=== PATIENT | female | born 1990 | race American Indian/Alaskan Native ===

== ENCOUNTER 2020-08-17 10:42 | Emergency (ER) | payer OTHER ==
[2020-08-17 10:52] VITALS: BP 135/75
--- NOTE | 2020-08-17 11:05 | Event Note ---
ED Screening Note ED Screening Note: 8 weeks steve confirmed her first appt with [facility] on 08/21/2020 states having vaginal spotting put on a light pad mild lower abd cramping no fever, v/d no dysuria pmhx none no allergies to meds LNMP: 06/18/2020 /P:0/A:1 This initial assessment/diagnostic orders/clinical plan/treatment(s) is/are subject to change based on patients health status, clinical progression and re- assessment by fellow clinical providers in the ED. Further treatment and workup at subsequent clinical providers discretion. Patient/guardian urged not to elope from the ED as their condition may be serious if not clinically assessed and managed. Initial orders include: labs, ua, US
[2020-08-17 11:33] LABS: Bacteria,Urine 1+ /HPF (Negative); Bilirubin,Urine NEG (Negative); Blood,Urine LG (Negative); Color,Urine Yellow (Yellow); Mucus,Urine FEW /HPF; Protein,Urine <15 mg/dL mg/dL (Negative); Urobilinogen,Urine < 2.0 mg/dL (<2.0)
[2020-08-17 11:44] LABS: Basophils # (Auto) 0.1 K/mm3 (0.0-0.1); Eosinophils # (Auto) 0.1 K/mm3 (0.0-0.4); Eosinophils % (Auto) 0.8 % (0.0-4.3); Hematocrit 37.8 % (30.3-42.9); Hemoglobin 13.2 gm/dl (10.1-14.3); Lymphocytes # (Auto) 2.4 K/mm3 (1.2-5.4); Lymphocytes % (Auto) 30.9 % (13.4-35.0); Mean Corpuscular HGB Conc 35 % (30-34); Mean Corpuscular Volume 91 fl (79-97); Monocytes # (Auto) 0.5 K/mm3 (0.0-0.8); Platelet Count 259 K/mm3 (140-440); Red Blood Count 4.18 M/mm3 (3.65-5.03); Red Cell Distribution Width 13.6 % (13.2-15.2)
[2020-08-17 11:54] LABS: WBC,Urine < 1.0 /HPF (0.0-6.0)
[2020-08-17 12:01] LABS: Blood Urea Nitrogen 6 mg/dL (7-17); Calcium 9.9 mg/dL (8.4-10.2); Hemolysis Index 0
[2020-08-17 12:03] LABS: BUN/Creatinine Ratio 12
--- NOTE | 2020-08-17 12:45 | Ultrasound Report ---
ULTRASOUND OBSTETRIC REASON FOR EXAM: , cramping, spotting TECHNIQUE: Transabdominal and transvaginal ultrasound was performed to evaluate a first trimester pre gnancy. COMPARISON: None available. FINDINGS: FINDINGS: The pole, yolk sac, and gestational sac are normal in appearance. [place]-rump length: 23 mm. This corresponds with a gestational age of 9 weeks 0 days. heart rate: 181 bpm Perigestational hemorrhage: No evidence of perigestational hemorrhage on the provided images. MATERNAL FINDINGS: The uterus measures 10.4 x 6.8 x 8.1 cm. The right ovary measures 3.4 x 2.4 x 1.8 cm and demonstrates a normal sonographic appearance. The left ovary is not visualized. Cul-de-sac: There is no free fluid. IMPRESSION: Single live intrauterine . Gestational age is 9 weeks 0 days by ultrasound, consistent with the patient's LMP. Recommend clinical screening and ultrasound follow-up in the second trimester to jaimee nguyen for anomalies. Signer Name: Yoshi Blum MD Signed: 08/17/2020 12:41 PM Workstation Name: [id number]
--- NOTE | 2020-08-17 13:24 | Emergency Department Report ---
ED HPI - General Chief complaint: Vaginal Bleeding Stated complaint: POSSIBLE MISCARRIAGE Time Seen by Provider: 08/17/20 11:03 Source: patient Mode of arrival: Wheelchair Limitations: No Limitations - History of Present Illness Initial comments: This is a 29-year-old female nontoxic, well nourished in appearance, no acute signs of distress presents to the ED with c/o of vaginal bleeding x1 day. Patient stated yesterday she noticed some spotting and goes by less then 1 hour every 3-4 hours. Patient denies any abdominal or pelvic pain. Patient denies any vaginal discharge or foul odor. Patient denies any nausea, vomiting, chest pain, shortness of breathe, fever, chills, headache, stiff neck, numbness, tingling. Patient denies any urinary symptoms. Patient denies any allergies or PMH. MD Complaint: vaginal bleeding -: days(s) Radiation: none Severity scale (0 -10): 0 Improves with: none Worsens with: none Associated symptoms: vaginal bleeding. denies: nausea/vomiting, vaginal discharge, abdominal pain, dysuria, headache, vision changes, malaise, dys paruenia, rash, seizure, shortness of breath, syncope, weakness Vaginal bleeding: light :: No Pre- care: followed by OB - Related Data Home Medications Medication Instructions Recorded Confirmed Last Taken No Known Home Medications [No 02/25/15 02/25/15 Unknown Reported Home Medications] Allergies Allergy/AdvReac Type Severity Reaction Status Date / Time No Known Allergies Allergy Unverified 02/25/15 20:24 ED Review of Systems ROS: Stated complaint: POSSIBLE MISCARRIAGE Other details as noted in HPI Constitutional: denies: chills, fever Eyes: denies: eye pain, eye discharge, vision change ENT: denies: ear pain, throat pain Respiratory: denies: cough, shortness of breath, wheezing Cardiovascular: denies: chest pain, palpitations Endocrine: no symptoms reported Gastrointestinal: denies: abdominal pain, nausea, diarrhea Genitourinary: abnormal menses. denies: urgency, dysuria, discharge Musculoskeletal: denies: back pain, joint swelling, arthralgia Skin: denies: rash, lesions Neurological: denies: headache, weakness, paresthesias Psychiatric: denies: anxiety, depression Hematological/Lymphatic: denies: easy bleeding, easy bruising ED Past Medical Hx - Past Medical History Previous Medical History?: No - Surgical History Past Surgical History?: No - Social History Smoking Status: Current Every Day Smoker Substance Use Type: None - Medications Home Medications: Home Medications Medication Instructions Recorded Confirmed Last Taken Type No Known Home Medications [No 02/25/15 02/25/15 Unknown History Reported Home Medications] ED Physical Exam - General Limitations: No Limitations General appearance: alert, in no apparent distress - Head Head exam: Present: atraumatic, normocephalic - Eye Eye exam: Present: normal appearance - Neck Neck exam: Present: normal inspection, full ROM - Respiratory Respiratory exam: Absent: respiratory distress - Cardiovascular Cardiovascular Exam: Present: regular rate - GI/Abdominal GI/Abdominal exam: Present: soft, normal bowel sounds. Absent: distended, tenderness, guarding, rebound, rigid, diminished bowel sounds - Extremities Exam Extremities exam: Present: full ROM - Back Exam Back exam: Present: normal inspection, full ROM. Absent: tenderness, CVA tenderness (R), CVA tenderness (L), muscle spasm, paraspinal tenderness, vertebral tenderness, rash noted - Neurological Exam Neurological exam: Present: alert, oriented X3, normal gait - Psychiatric Psychiatric exam: Present: normal affect, normal mood - Skin Skin exam: Present: warm, dry, intact, normal color. Absent: rash ED Course Vital Signs 08/17/20 10:52 Pulse Rate 99 H Respiratory 16 Rate Blood Pressure 135/75 [Right] O2 Sat by Pulse 99 Oximetry - Reevaluation(s) Reevaluation #1: 08/17/20 13:28 Patient is speaking in full sentences with no signs of distress noted. ED Medical Decision Making - Lab Data Result diagrams: 08/17/20 11:15 08/17/20 11:15 Lab Results 08/17/20 08/17/20 08/17/20 Range/Units 11:15 11:15 11:15 WBC 7.7 (4.5-11.0) K/mm3 RBC 4.18 (3.65-5.03) M/mm3 Hgb 13.2 (10.1-14.3) gm/dl Hct 37.8 (30.3-42.9) % MCV 91 (79-97) fl MCH 32 (28-32) pg MCHC 35 H (30-34) % RDW 13.6 (13.2-15.2) % Plt Count 259 (140-440) K/mm3 Lymph % (Auto) 30.9 (13.4-35.0) % [place] % (Auto) 7.0 (0.0-7.3) % Eos % (Auto) 0.8 (0.0-4.3) % Baso % (Auto) 1.0 (0.0-1.8) % Lymph # (Auto) 2.4 (1.2-5.4) K/mm3 [place] # (Auto) 0.5 (0.0-0.8) K/mm3 Eos # (Auto) 0.1 (0.0-0.4) K/mm3 Baso # (Auto) 0.1 (0.0-0.1) K/mm3 Seg Neutrophils % 60.3 (40.0-70.0) % Seg Neutrophils # 4.7 (1.8-7.7) K/mm3 Sodium 138 (137-145) mmol/L Potassium 3.8 (3.6-5.0) mmol/L Chloride 104.3 (98-107) mmol/L Carbon Dioxide 23 (22-30) mmol/L Anion Gap 15 mmol/L BUN 6 L (7-17) mg/dL Creatinine 0.5 L (0.6-1.2) mg/dL Estimated GFR > 60 ml/min BUN/Creatinine Ratio 12 % Glucose 104 H (65-100) mg/dL Calcium 9.9 (8.4-10.2) mg/dL HCG, Quant 055064 H (0-4) mIU/mL Urine Color (Yellow) Urine Turbidity (Clear) Urine pH (5.0-7.0) Ur Specific [place] (1.003-1.030) Urine Protein (Negative) mg/dL Urine Glucose (UA) (Negative) mg/dL Urine Ketones (Negative) mg/dL Urine Blood (Negative) Urine Nitrite (Negative) Urine Bilirubin (Negative) Urine Urobilinogen (<2.0) mg/dL Ur Leukocyte Esterase (Negative) Urine WBC (Auto) (0.0-6.0) /HPF Urine RBC (Auto) (0.0-6.0) /HPF U Epithel Cells (Auto) (0-13.0) /HPF Urine Bacteria (Auto) (Negative) /HPF Urine Mucus /HPF Blood Type 08/17/20 08/17/20 Range/Units 11:15 11:24 WBC (4.5-11.0) K/mm3 RBC (3.65-5.03) M/mm3 Hgb (10.1-14.3) gm/dl Hct (30.3-42.9) % MCV (79-97) fl MCH (28-32) pg MCHC (30-34) % RDW (13.2-15.2) % Plt Count (140-440) K/mm3 Lymph % (Auto) (13.4-35.0) % [place] % (Auto) (0.0-7.3) % Eos % (Auto) (0.0-4.3) % Baso % (Auto) (0.0-1.8) % Lymph # (Auto) (1.2-5.4) K/mm3 [place] # (Auto) (0.0-0.8) K/mm3 Eos # (Auto) (0.0-0.4) K/mm3 Baso # (Auto) (0.0-0.1) K/mm3 Seg Neutrophils % (40.0-70.0) % Seg Neutrophils # (1.8-7.7) K/mm3 Sodium (137-145) mmol/L Potassium (3.6-5.0) mmol/L Chloride (98-107) mmol/L Carbon Dioxide (22-30) mmol/L Anion Gap mmol/L BUN (7-17) mg/dL Creatinine (0.6-1.2) mg/dL Estimated GFR ml/min BUN/Creatinine Ratio % Glucose (65-100) mg/dL Calcium (8.4-10.2) mg/dL HCG, Quant (0-4) mIU/mL Urine Color Yellow (Yellow) Urine Turbidity Clear (Clear) Urine pH 7.0 (5.0-7.0) Ur Specific [place] 1.017 (1.003-1.030) Urine Protein <15 mg/dl (Negative) mg/dL Urine Glucose (UA) Neg (Negative) mg/dL Urine Ketones 20 (Negative) mg/dL Urine Blood Lg (Negative) Urine Nitrite Neg (Negative) Urine Bilirubin Neg (Negative) Urine Urobilinogen < 2.0 (<2.0) mg/dL Ur Leukocyte Esterase Neg (Negative) Urine WBC (Auto) < 1.0 (0.0-6.0) /HPF Urine RBC (Auto) 7.0 (0.0-6.0) /HPF U Epithel Cells (Auto) 4.0 (0-13.0) /HPF Urine Bacteria (Auto) 1+ (Negative) /HPF Urine Mucus Few /HPF Blood Type O POSITIVE - Radiology Data Referring Physician: TRACY PAL Patient Name: YOSEPH ARDON Date of : 1990 Sex: Female Report Date: 2020-08-17 Report Status: Finalized [facility] [address] [place] [address] Ultrasound Report Signed Patient: YOSEPH ARDON MR#: [id number] : 1990 Acct:[id number] Age/Sex: 29 / F ADM Date: 08/17/20 Loc: ED Attending Dr: Ordering Physician: GOLD SHIPLEY Date of Service: 08/17/20 Procedure(s): US OB <= 14 weeks fetus Accession Number(s): [id number] cc: GOLD SHIPLEY ULTRASOUND OBSTETRIC REASON FOR EXAM: , cramping, spotting TECHNIQUE: Transabdominal and transvaginal ultrasound was performed to evaluate a first trimester . COMPARISON: None available. FINDINGS: FINDINGS: The pole, yolk sac, and gestational sac are normal in appearance . [place]-rump length: 23 mm. This corresponds with a gestational age of 9 weeks 0 days. heart rate: 181 bpm Perigestational hemorrhage: No evidence of perigestational hemorrhage on the provided images. MATERNAL FINDINGS: The uterus measures 10.4 x 6.8 x 8.1 cm. The right ovary measures 3.4 x 2.4 x 1.8 cm and demonstrates a normal sonographic appearance. The left ovary is not visualized. Cul-de-sac: There is no free fluid. IMPRESSION: Single live intrauterine . Gestational age is 9 weeks 0 days by ultrasound, consistent with the patient's LMP. Recommend clinical screening and ultrasound follow-up [facility] to screen for anomalies. Signer Name: Malena Blum MD Signed: 08/17/2020 12:41 PM Workstation Name: [id number] Transcribed By: KIT Dictated By: MALENA PRICE MD Electronically Authenticated By: MALENA PRICE MD Signed Date/Time: 08/17/20 1241 DD/ 1239 TD/TT: - Medical Decision Making This is a 29-year-old female presents with threatened miscarriage. Patient is stable and was examined by me. Normal abdominal exam. US OB obtained and dictated by the radiologist. Ua obtained. Quantative serum test obtained. Patient notified of the US report with no questions noted by the patient. P atient was instructed f/u with [facility] in 3-5 days. RH factor positive. Labs within normal limits. Patient was given strict precautions and education on ectopic . At time of discharge, the patient does not seem toxic or ill in appearance. No acute signs of distress noted. Patient agrees to discharge treatment plan of care. No further questions noted by the patient. Critical care attestation.: If time is entered above; I have spent that time in minutes in the direct care of this critically ill patient, excluding procedure time. ED Disposition Clinical Impression: Threatened miscarriage Disposition: DC-01 TO HOME OR SELFCARE Is pt being admited?: No Does the pt Need Aspirin: No Condition: Stable Instructions: Threatened Miscarriage Additional Instructions: Follow-up with a [facility] doctor in 3-5 days or if symptoms worsen and continue return to emergency room as soon as possible. Referrals: [facility] [Primary Care Provider] - 3-5 Days [facility] [Provider Group] - 3-5 Days [facility] [Provider Group] - 3-5 Days
== END 2020-08-17 13:36 | disposition home or self-care (01) ==
LOC: ED 10:42
DX: O20.0 Threatened abortion (principal); F17.200 Nicotine dependence, unspecified, uncomplicated; Z3A.09 9 weeks gestation of pregnancy
CPT/HCPCS: 36415; 76801; 80048; 81001; 84702; 85025; 86900; 86901

== ENCOUNTER 2020-09-14 13:12 | Emergency (ER) | payer OTHER ==
[2020-09-14 13:23] VITALS: BP 137/80
--- NOTE | 2020-09-14 13:38 | Event Note ---
ED Screening Note Date of service: 09/14/20 Time: 13:37 ED Screening Note: 30-year-old -Citizen Of The [place] female presents to the emergency room stating she is 12 weeks and started having some vaginal spotting on the tissue when she wipes. Patient denies any trauma. She states that she has been recently treated for bacterial vaginosis left clindamycin suppository and fluconazole.Patient reports light cramping. She is 2 para 0 last ultrasound 09/08/2020. [facility]. This initial assessment/diagnostic orders/clinical plan/treatment(s) is/are subject to change based on patients health status, clinical progression and re- assessment by fellow clinical providers in the ED. Further treatment and workup at subsequent clinical providers discretion. Patient/guardian urged not to elope from the ED as their condition may be serious if not clinically assessed and managed. Initial orders include:
[2020-09-14 14:31] LABS: Basophils % (Auto) 0.4 % (0.0-1.8); Eosinophils % (Auto) 0.3 % (0.0-4.3); Hematocrit 39.1 % (30.3-42.9); Hemoglobin 13.4 gm/dl (10.1-14.3); Lymphocytes # (Auto) 2.2 K/mm3 (1.2-5.4); Lymphocytes % (Auto) 26.3 % (13.4-35.0); Mean Corpuscular HGB Conc 34 % (30-34); Mean Corpuscular Volume 93 fl (79-97); Monocytes # (Auto) 0.8 K/mm3 (0.0-0.8); Monocytes % (Auto) 9.9 % (0.0-7.3); Red Blood Count 4.22 M/mm3 (3.65-5.03); Red Cell Distribution Width 13.6 % (13.2-15.2)
[2020-09-14 14:42] LABS: Platelet Count 237 K/mm3 (140-440)
[2020-09-14 14:46] LABS: Mucus,Urine FEW /HPF
[2020-09-14 14:49] LABS: Bilirubin,Urine NEG (Negative); Blood,Urine LG (Negative); Color,Urine Yellow (Yellow); Urobilinogen,Urine < 2.0 mg/dL (<2.0)
== END 2020-09-15 01:34 ==
LOC: ED 13:12
DX: O20.8 Other hemorrhage in early pregnancy (principal); Z53.21 Procedure and treatment not carried out due to patient leaving prior to being seen by health care provider; Z3A.12 12 weeks gestation of pregnancy
CPT/HCPCS: 36415; 81001; 84702; 85025

== ENCOUNTER 2020-11-17 15:09 | Inpatient (IN) | payer OTHER ==
[2020-11-17 16:00] LABS: Bacteria,Urine 1+ /HPF (Negative); Bilirubin,Urine NEG (Negative); Blood,Urine NEG (Negative); Color,Urine Yellow (Yellow); Mucus,Urine FEW /HPF; Protein,Urine <15 mg/dL mg/dL (Negative); Urobilinogen,Urine < 2.0 mg/dL (<2.0)
[2020-11-17] MEDS: LACTATED RINGERS 1,000 ML IV SCH ×2 (16:10→21:52)
[2020-11-17] MEDS ORDERED: ACETAMINOPHEN 500 MG TAB PO PRN (19:09)
--- NOTE | 2020-11-17 19:32 | Ultrasound Report ---
ULTRASOUND OBSTETRIC COMPLETE INDICATION / CLINICAL INFORMATION: 21 wk ROM. Clinical Gestational Age (GA) in weeks, days: 21 weeks 5 days TECHNIQUE: Transabdominal. COMPARISON: 08/17/2020 FINDINGS: NUMBER: Single PRESENTATION: cephalic PLACENTA: Fundal and free of the os. No evidence of obstruction. MATERNAL ADNEXA: No significant abnormality. CERVIX: Cervix measures 3.5 cm and appears closed. Suggestion of fluid in the region of the cervix, n ot further characterized. AMNIOTIC FLUID VOLUME: normal AMNIOTIC FLUID INDEX (ALAINA) in cm (if measured): 9.5 cm ANATOMY: Examination is not tailored to evaluate detailed anatomy. No gross anatomic abnormality is iden tified. MEASUREMENTS: - Biparietal Diameter = 5.5 cm = 22 weeks 5 days - Head Circumference = 19.3 cm = 21 weeks 4 days - Abdominal Circumference = 17 cm = 22 weeks 0 days - Femur Length = 3.9 cm = 22 weeks 3 days - Estimated Weight (in grams, if calculated): 479 g - Heart Rate (beats per minute): 174 ADDITIONAL FINDINGS: None. AVERAGE ULTRASOUND AGE (AUA) in weeks, days = 22 weeks 1 day IMPRESSION: 1. Single intrauterine with AUA of 22 weeks 1 day. 2. The cervix measures 3.5 cm and appears closed. There is suggestion of fluid in the region of the c ervix, though this is not further characterized. Continued follow-up is recommended. 3. Otherwise, no significant sonographic abnormality. ALAINA measures 9.5 cm, within normal limits. Signer Name: Yoshi Blum MD Signed: 11/17/2020 7:28 PM Workstation Name: [id number]
[2020-11-17] MEDS ORDERED: TERBUTALINE 1 MG/1 ML INJ SUB-Q PRN (21:00)
[2020-11-17] MEDS ORDERED: TERBUTALINE 1 MG/1 ML INJ ONE (21:02)
[2020-11-17] MEDS ORDERED: DOCUSATE SODIUM 100 MG CAP PO PRN (21:59)
[2020-11-17] MEDS ORDERED: ZOLPIDEM 5 MG TAB PO PRN (22:02)
[2020-11-17] MEDS ORDERED: GENTAMICIN/NS 80 MG/100 ML 100 ML IV ONE (23:43)
[2020-11-17] MEDS ORDERED: AMPICILLIN/NS 2 GM/100 ML 2 GM/100 ML BAG IV SCH (23:55)
[2020-11-18] MEDS: ceFAZolin/NS 1 GM/50 ML 1 GM/50 ML BAG IV SCH ×2 (02:07→11:10)
[2020-11-18] MEDS: BUTORPHANOL 2 MG/1 ML INJ IV PRN ×3 (02:30→08:44)
[2020-11-18] MEDS ORDERED: ACETAMINOPHEN 500 MG TAB PO NR (07:29)
[2020-11-18] MEDS: LACTATED RINGERS 1,000 ML IV SCH (08:33)
--- NOTE | 2020-11-18 08:36 | History and Physical Report ---
History of Present Illness Date of examination: 11/18/20 Date of admission: 11/17/20 15:20 Chief complaint: cramps, then my water broke History of present illness: Pt is a 30 year old REAL 03/25/21 at 21w6d who presented to triage yesterday secondary to pelvic cramping. She was evaluated in triage and noted to have cystitis and given a dose of Ancef. While in triage, she was noted to be harish and was given IV hydration. During her evaluation, the patient notes a gush of fluid and intermittent leakage since then. She also reports vaginal spotting since yesterday morning. She has had care at [facility] for one visit on 11/13/20 since transfer into care complicated by obesity, pyelectasis s/p MFM referral from prior practice, and NIPT yielding insufficient DNA x 2. Her GBS status is unknown. Since admission the pat ient has been febrile to 102 requiring Tylenol. She denies headache, blurred vision, dyspnea, cough, emesis, constipation, lower extremity edema. During her interview this morning, she is noted to have painful contractions. Past History Past Medical History: no pertinent history Past Surgical History: no surgical history Social history: no significant social history - Obstetrical History Expected Date of Delivery: 03/25/21 Actual Gestation: 21 Week(s) 6 Day(s) : 2 Para: 0 Hx # Term Pregnancies: 0 Number of Pregnancies: 0 Spontaneous Abortions: 0 Induced : 1 Number of Living Children: 0 Medications and Allergies Allergies Allergy/AdvReac Type Severity Reaction Status Date / Time No Known Allergies Allergy Verified 11/17/20 15:21 Home Medications Medication Instructions Recorded Confirmed Last Taken Type No Known Home Medications [No 02/25/15 02/25/15 Unknown History Reported Home Medications] Active Meds: Active Medications Acetaminophen (Acetaminophen 500 Mg Tab) 1,000 mg PO ONCE NR Stop: 11/18/20 13:00 Last Admin: 11/18/20 07:53 Dose: 1,000 mg Documented by: Acetaminophen (Acetaminophen 325 Mg Tab) 650 mg PO Q6H PRN PRN Reason: Fever >101 Butorphanol Tartrate (Butorphanol 2 Mg/1 Ml Inj) 2 mg IV Q2H PRN PRN Reason: Labor Pain Last Admin: 11/18/20 06:26 Dose: 2 mg Documented by: Docusate Sodium (Docusate Sodium 100 Mg Cap) 100 mg PO Q12H PRN PRN Reason: Constipation Lactated Ringer's (Lactated Ringers) 1,000 mls @ 125 mls/hr IV DIRECT OSIEL Last Admin: 11/17/20 21:52 Dose: 125 mls/hr Documented by: Cefazolin Sodium (Ancef/Ns 1 Gm/50 Ml) 1 gm in 50 mls @ 100 mls/hr IV Q8H OSIEL; Protocol Last Infusion: 11/18/20 02:37 Dose: Infused Documented by: Multivitamins/Iron/Calcium ( Str01-Jg Fumarate-Folic Acid Vit Tab) 1 each PO QDAY OSIEL Terbutaline Sulfate (Terbutaline 1 Mg/1 Ml Inj) 0.25 mg SUB-Q Q20MIN PRN PRN Reason: CONTRACTIONS Last Admin: 11/17/20 22:43 Dose: 0.25 mg Documented by: Zolpidem Tartrate (Zolpidem 5 Mg Tab) 5 mg PO QHS PRN PRN Reason: Sleep Review of Systems All systems: negative Constitutional: fever Cardiovascular: no chest pain, no edema, no shortness of breath Respiratory: no cough Gastrointestinal: no vomiting - Vital Signs Vital signs: Vital Signs Temp Pulse Resp BP Pulse Ox 98.9 F 118 H 20 127/80 99 11/17/20 15:15 11/17/20 15:15 11/17/20 15:15 11/17/20 15:15 11/17/20 15:15 Temp Pulse Resp BP Pulse Ox 102.7 F H 131 H 20 124/59 94 11/18/20 07:25 11/18/20 08:29 11/18/20 07:53 11/18/20 07:13 11/18/20 08:29 - Physical Exam Breasts: Positive: deferred Cardiovascular: Regular rate Abdomen: Positive: soft (gravid ). Negative: tenderness Uterus: Positive: enlarged (gravid ) Extremities: Positive: normal. Negative: tenderness - Obstetrical Uterine Contraction Monitor Mode: External Cervical Dilatation: 0.5 (speculum exam with pink amniotic fluid and mucus, os 0.5 cm, 50% effaced) Uterine Contraction Pattern: Irregular Uterine Tone Measurement Phase: Resting Uterine Contraction Intensity: Mild Results Abnormal lab results 11/17/20 Range/Units Unknown Urine WBC (Auto) 32.0 H (0.0-6.0) /HPF U Epithel Cells (Auto) 16.0 H (0-13.0) /HPF All other labs normal. Ultrasound: report reviewed Assessment and Plan A: IUP at 21w6d PPROM on 11/17/20 at 1739 pm placed on Ancef and Gentamicin Febrile Morbidity Obesity Pyelectasis GBS unknown P: Admit to antepartum service Continue IV antibiotics Blood cultures x 2 Coronovirus test ordered MFM consult NICU consult Closely monitor clinical status
[2020-11-18 09:17] LABS: Basophils % (Auto) 0.2 % (0.0-1.8); Hematocrit 35.1 % (30.3-42.9); Lymphocytes # (Auto) 1.3 K/mm3 (1.2-5.4); Lymphocytes % (Auto) 6.7 % (13.4-35.0); Mean Corpuscular HGB Conc 34 % (30-34); Mean Corpuscular Volume 92 fl (79-97); Monocytes % (Auto) 10.8 % (0.0-7.3); Platelet Count 202 K/mm3 (140-440); Red Blood Count 3.82 M/mm3 (3.65-5.03); Red Cell Distribution Width 14.5 % (13.2-15.2)
[2020-11-18] MEDS ORDERED: OXYTOCIN DRIP 30,000 MILLIUNITS/500 ML BAG IV ONE ×2 (09:25→11:00)
[2020-11-18 09:33] LABS: Alanine Aminotransferase 17 units/L (7-56); Albumin 3.1 g/dL (3.9-5); Blood Urea Nitrogen 3 mg/dL (7-17); Calcium 8.9 mg/dL (8.4-10.2); Hemolysis Index 2
[2020-11-18 09:35] LABS: BUN/Creatinine Ratio 6
[2020-11-18] MEDS ORDERED: METHYLERGONOVINE MALEATE 0.2 MG/ML VIAL IM ONE (09:43)
[2020-11-18] MEDS ORDERED: PRENATAL VIT27-FE FUMARATE-FOLIC ACID VIT TAB PO SCH (10:00)
--- NOTE | 2020-11-18 10:00 | Procedure Note ---
OB Delivery Note - Delivery Date of Delivery: 11/18/20 Surgeon: HOLLY MARSH Estimated blood loss: 300cc - Vaginal Delivery presentation: vertex Delivery position: OA Intrapartum events: febrile- temp >100.3, PROM->1hr before delivery, uterine atony (s/p Methergine 0.2 mg IM ) Delivery induction: none Delivery monitor: external uterine Route of delivery: Delivery placenta: spontaneous Delivery laceration: none Anesthesia: none - A at 1 minute: 1 (518g @ 0929 am) at 5 minutes: 1 Gender: Male
--- NOTE | 2020-11-18 12:45 | Event Note ---
Date: 11/18/20 Pt asking to go home. She is informed that she cannot go home as she recently had a fever. She has agreed to stay for observation at least overnight until 7 am tomorrow. Pt advised that if she leaves now it would be against medical advice. Continue to monitor closely.
[2020-11-18] MEDS ORDERED: diphenhydrAMINE 25 MG CAP PO PRN (13:49)
[2020-11-18] MEDS ORDERED: HYDROcodone/ACETAMINOPHEN 5-325 MG TAB PO PRN (13:49)
[2020-11-18] MEDS ORDERED: WITCH HAZEL/ GLYCERIN PAD TP PRN (13:49)
[2020-11-18] MEDS ORDERED: BENZOCAINE/MENTHOL 20/0.5% TOP SPRAY 56 GM TP PRN (13:49)
[2020-11-18] MEDS ORDERED: ONDANSETRON 4 MG/2 ML INJ IV PRN (13:49)
[2020-11-18] MEDS ORDERED: MAGNESIUM HYDROXIDE (MOM) ORAL LIQD UDC PO PRN (13:49)
[2020-11-18] MEDS ORDERED: LANOLIN/ZINC/DIMETHICONE (LANSINOH) 7 GM TP PRN ×2 (13:49)
[2020-11-18] MEDS ORDERED: PROMETHAZINE 25 MG TAB PO PRN (13:49)
[2020-11-18] MEDS ORDERED: PROMETHAZINE 25 MG RECT SUPP PR PRN (13:49)
[2020-11-18] MEDS ORDERED: ACETAMINOPHEN 325 MG TAB PO PRN (14:00)
[2020-11-18] MEDS: IBUPROFEN 600 MG TAB PO SCH ×2 (16:04→19:49)
--- NOTE | 2020-11-18 21:41 | Discharge Summary ---
Providers - Providers Date of Admission: 11/17/20 21:51 Date of discharge: 11/19/20 Attending physician: ELLYN MARSH Primary care physician: ELLYN MARSH Hospitalization Reason for admission: labor Delivery: Procedure details: Please see delivery note Episiotomy: none Laceration: none Other procedures: none complications: none Discharge diagnosis: delivery [place] baby: male Hospital course: Pt was admitted secondary to labor, PPROM and fever at 21 wks. The patient delivered a non viable male via spontaneous vaginal delivery and was started on IV antibiotics. Pt adamantly desired discharge immediately after the delivery, but she agreed to remain under observation until 7 am on PPD#1 and could be discharged if she remained afebrile. Blood cultures and urine culture are pending. She will follow up in 1 week in the office. Condition at discharge: Stable Disposition: DC-01 TO HOME OR SELFCARE - Discharge Diagnoses (1) labor in second trimester with delivery Status: Acute (2) premature rupture of membranes (PPROM) delivered, current hospitalization Status: Acute (3) Fever Status: Acute Qualifiers: Fever type: fever during labor (maternal) Qualified Code(s): O75.2 - Pyrexia during labor, not elsewhere classified Plan - Discharge Medications Prescriptions: Amoxicillin/Potassium Clav [Augmentin 875-125 Tablet] 1 each PO BID #14 tablet Ibuprofen [Motrin] 800 mg PO Q8HR PRN #30 tablet PRN Reason: Pain, Moderate (4-6) HYDROcodone/APAP 5-325 [[place] 5/325] 1 each PO Q4HR PRN #15 tablet PRN Reason: Pain - Provider Discharge Summary Activity: no sex for 6 weeks, no heavy lifting 4 weeks, no strenuous exercise Diet: routine Instructions: routine Additional instructions: [] Smoking cessation referral if applicable(refer to patient education folder for contact #) [] Refer to [facility] Booklet Call your doctor immediately for: * Fever > 100.5 * Heavy vaginal bleeding ( >1 pad per hour) * Severe persistent headache * Shortness of breath * Reddened, hot, painful area to leg or breast * Drainage or odor from incision. * Keep incision clean and dry at all times and follow doctor's instructions regarding bathing/showering - Follow up plan Follow up: HOLLY MARSH MD [Staff Physician] - 7 Days
[2020-11-18 23:20] LABS: Hematocrit 31.8 % (30.3-42.9); Hemoglobin 10.9 gm/dl (10.1-14.3)
[2020-11-19] MEDS: IBUPROFEN 600 MG TAB PO SCH (01:49)
[2020-11-19] MEDS: ceFAZolin/NS 1 GM/50 ML 1 GM/50 ML BAG IV SCH (03:54)
[2020-11-19 05:03] VITALS: BP 118/74
[2020-11-19] MEDS ORDERED: MEASLES, MUMPS & RUBELLA 12,500 UNIT/0.5 ML VACCINE SUB-Q ONE (10:10)
[2020-11-19] MEDS ORDERED: DIPHtheria,PERTUSSIS(ACELL),TETANUS VACCINE/PF 0.5 ML VIAL IM ONE (10:12)
== END 2020-11-19 06:25 | disposition home or self-care (01) | DRG 805 ==
LOC: TRG 15:09 → APU 15:09 → TRG 15:18 → LD 15:20 → OBSVTOIN 21:51 → OB 11-18 13:49
PROVIDERS: ADMIT Obstetrics & Gynecology; ATTEND Obstetrics & Gynecology
PROC: 10E0XZZ Delivery of Products of Conception, External Approach (ICD-10-PCS; principal; 2020-11-18)
PROC: 3E0234Z Introduction of Serum, Toxoid and Vaccine into Muscle, Percutaneous Approach (ICD-10-PCS; 2020-11-18)
DX: O42.012 Preterm premature rupture of membranes, onset of labor within 24 hours of rupture, second trimester (principal); O75.3 Other infection during labor; Z37.0 Single live birth; O75.2 Pyrexia during labor, not elsewhere classified; N13.6 Pyonephrosis; Z20.822 Contact with and (suspected) exposure to COVID-19; O99.214 Obesity complicating childbirth; O62.2 Other uterine inertia; Z3A.21 21 weeks gestation of pregnancy
CPT/HCPCS: 36415; 76816; 80053; 81001; 85014; 85018; 85025; 86850; 86900; 86901; 87040; 87086; 88305; 96360; 96365; G0378; J0595; J0690; J1580; J2210; J2590; J3105; J7120; U0003